=== PATIENT | female | born 1955 | race Caucasian/White ===

== ENCOUNTER 2019-01-21 10:17 | Day surgery (SDC) | payer BC ==
[~2019-01-21 10:17] MED LIST: Lactated Ringers 1,000 ML IV SCH; Lidocaine 1%/Sod Bicarbonate in NS 8.4% 1 ML Syringe IDERM PRN; Sodium Chloride 0.9% 10 ML Syringe FLUSH PRN
[2019-01-21] MEDS ORDERED: Rocuronium 50 MG/5 ML Vial ONE (10:31)
[2019-01-21] MEDS ORDERED: Lidocaine 1% 4 ML ONE (10:31)
[2019-01-21] MEDS ORDERED: Ondansetron 4 MG/2 ML SDV ONE (10:31)
[2019-01-21] MEDS ORDERED: Propofol 200 MG/20 ML SDV ONE (10:32)
[2019-01-21] MEDS ORDERED: Midazolam 1 MG/ML 2 ML SDV ONE (10:32)
[2019-01-21] MEDS ORDERED: Ketorolac 30 MG/ML SDV ONE (10:32)
[2019-01-21] MEDS ORDERED: fentaNYL 250 MCG/5 ML SDV ONE (10:32)
[2019-01-21] MEDS ORDERED: Dexamethasone 4 MG/ML SDV ONE (10:32)
[2019-01-21] MEDS ORDERED: ceFAZolin 1 GM Vial ONE (10:34)
--- NOTE | 2019-01-21 10:48 | PCM.PREANE ---
Preanesthetic Assessment - Procedure Proposed Procedure: A and P repair- sling and perineaplasty - Anesthesia/Transfusion/Family Hx Anesthesia History: Prior Anesthesia Without Reaction Family History of Anesthesia Reaction: No Transfusion History: No Prior Transfusion(s) - Review of Systems General: No Symptoms Pulmonary: No Symptoms Cardiovascular: No Symptoms Gastrointestinal: No Symptoms Neurological: No Symptoms Other: Reports: Sinus Problem (drainage- ) - Physical Assessment NPO Status Date: 01/20/19 NPO Status Time: 21:00 Pulse: 81 O2 Sat by Pulse Oximetry: 95 Respiratory Rate: 16 Blood Pressure: 131/73 Temperature: 98.1 F Height: 5 ft 3 in Weight: 69.853 kg ASA Class: 2 Mental Status: Alert & Oriented x3 Airway Class: Mallampati = 1 Dentition: Reports: Normal Dentition Thyro-Mental Finger Breadths: 3 Mouth Opening Finger Breadths: 3 ROM/Head Extension: Full Lungs: Clear to Auscultation, Normal Respiratory Effort Cardiovascular: Regular Rate, Regular Rhythm - Lab Values: Laboratory Last Values WBC 5.46 K/mm3 (3.98-10.04) 01/20/19 13:53 RBC 4.62 M/mm3 (3.98-5.22) 01/20/19 13:53 Hgb 13.5 gm/L (11.2-15.7) 01/20/19 13:53 Hct 41.5 % (34.1-44.9) 01/20/19 13:53 MCV 89.8 fl (79.4-94.8) 01/20/19 13:53 MCH 29.2 pg (25.6-32.2) 01/20/19 13:53 MCHC 32.5 g/dl (32.2-35.5) 01/20/19 13:53 RDW Std Deviation 42.1 fL (36.4-46.3) 01/20/19 13:53 Plt Count 271 K/mm3 (182-369) 01/20/19 13:53 MPV 8.8 fl (9.4-12.3) L 01/20/19 13:53 Neut % (Auto) 59.5 % (34.0-71.1) 01/20/19 13:53 Lymph % (Auto) 20.9 % (19.3-51.7) 01/20/19 13:53 [place] % (Auto) 13.9 % (4.7-12.5) H 01/20/19 13:53 Eos % (Auto) 4.0 (0.7-5.8) 01/20/19 13:53 Baso % (Auto) 1.5 % (0.1-1.2) H 01/20/19 13:53 Neut # (Auto) 3.25 K/mm3 (1.56-6.13) 01/20/19 13:53 Lymph # (Auto) 1.14 K/mm3 (1.18-3.74) L 01/20/19 13:53 [place] # (Auto) 0.76 K/mm3 (0.24-0.36) H 01/20/19 13:53 Eos # (Auto) 0.22 K/mm3 (0.04-0.36) 01/20/19 13:53 Baso # (Auto) 0.08 K/mm3 (0.01-0.08) 01/20/19 13:53 Sodium 140 mEq/L (136-145) 01/20/19 13:53 Potassium 3.7 mEq/L (3.5-5.1) 01/20/19 13:53 Chloride 105 mEq/L (98-107) 01/20/19 13:53 Carbon Dioxide 26 mEq/L (21-32) 01/20/19 13:53 Anion Gap 12.7 (5-15) 01/20/19 13:53 BUN 12 mg/dL (7-18) 01/20/19 13:53 Creatinine 0.9 mg/dL (0.55-1.02) 01/20/19 13:53 Est Cr Clr Drug Dosing TNP 01/20/19 13:53 Estimated GFR (MDRD) > 60 mL/min (>60) 01/20/19 13:53 BUN/Creatinine Ratio 13.3 (14-18) L 01/20/19 13:53 Glucose 99 mg/dL (80-115) 01/20/19 13:53 Calcium 9.2 mg/dL (8.5-10.1) 01/20/19 13:53 Total Bilirubin 0.4 mg/dL (0.2-1.0) 01/20/19 13:53 AST 26 U/L (15-37) 01/20/19 13:53 ALT 33 U/L (14-59) 01/20/19 13:53 Alkaline Phosphatase 76 U/L (46-116) 01/20/19 13:53 Total Protein 7.7 g/dl (6.4-8.2) 01/20/19 13:53 Albumin 4.0 g/dl (3.4-5.0) 01/20/19 13:53 Globulin 3.7 gm/dL 01/20/19 13:53 Albumin/Globulin Ratio 1.1 (1-2) 01/20/19 13:53 Urine Color Yellow (Yellow) 01/20/19 13:53 Urine Appearance Clear (Clear) 01/20/19 13:53 Urine pH 6.0 (5.0-8.0) 01/20/19 13:53 Ur Specific Dozier 1.025 (1.005-1.030) 01/20/19 13:53 Urine Protein Negative (Negative) 01/20/19 13:53 Urine Glucose (UA) Negative (Negative) 01/20/19 13:53 Urine Ketones Negative (Negative) 01/20/19 13:53 Urine Occult Blood Trace-intact (Negative) H 01/20/19 13:53 Urine Nitrite Negative (Negative) 01/20/19 13:53 Urine Bilirubin Negative (Negative) 01/20/19 13:53 Urine Urobilinogen 0.2 (0.2-1.0) 01/20/19 13:53 Ur Leukocyte Esterase Trace (Negative) H 01/20/19 13:53 - Allergies Allergies/Adverse Reactions: Allergies Allergy/AdvReac Type Severity Reaction Status Date / Time No Known Allergies Allergy Verified 01/20/19 15:17 - Blood Blood Available: No - Acknowledgements Anesthesia Type Planned: General Anesthesia Pt an Appropriate Candidate for the Planned Anesthesia: Yes Alternatives and Risks of Anesthesia Discussed w Pt/Guardian: Yes Pt/Guardian Understands and Agrees with Anesthesia Plan: Yes PreAnesthesia Questionnaire HEENT History: Reports: Impaired Vision Cardiovascular History: Reports: None Respiratory History: Reports: None Gastrointestinal History: Reports: None Genitourinary History: Reports: None 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: Reports: None Musculoskeletal History: Reports: None Neurological History: Reports: None Psychiatric History: Reports: None Endocrine/Metabolic History: Reports: None Hematologic History: Reports: None Immunologic History: Reports: None Oncologic (Cancer) History: Reports: None Dermatologic History: Reports: None - Past Surgical History Head Surgeries/Procedures: Reports: None HEENT Surgical History: Reports: Cataract Surgery, Oral Surgery Cardiovascular Surgical History: Reports: None Respiratory Surgical History: Reports: None GI Surgical History: Reports: None Female Surgical History: Reports: None, Hysterectomy Male Surgical History: Reports: None Endocrine Surgical History: Reports: None Neurological Surgical History: Reports: None Musculoskeletal Surgical History: Reports: None Oncologic Surgical History: Reports: None Dermatological Surgical History: Reports: None - SUBSTANCE USE Smoking Status *Q: Never Smoker Tobacco Use Within Last Twelve Months: No Second Hand Smoke Exposure: No Days Per Week of Alcohol Use: 1 (rare) Recreational Drug Use History: No - HOME MEDS Home Medications: Home Meds . [No Known Home Meds] 01/20/19 [History] - CURRENT (IN HOUSE) MEDS Current Meds: Current Medications Lactated Ringer's (Ringers, Lactated) 1,000 mls @ 125 mls/hr IV ASDIRECTED CHAUNCEY Stop: 01/21/19 23:00 Lidocaine/Sodium Bicarbonate (Buffered Lidocaine 1% In Ns 8.4%) 0.25 ml IDERM ONETIME PRN PRN Reason: Prior to IV Start Stop: 01/21/19 23:00 Sodium Chloride (Saline Flush) 10 ml FLUSH ASDIRECTED PRN PRN Reason: Keep Vein Open Stop: 01/21/19 23:00 Discontinued Medications Cefazolin Sodium (Ancef) Confirm Administered Dose 2 gm .ROUTE .STK-MED ONE Stop: 01/21/19 10:35 Dexamethasone (Dexamethasone) Confirm Administered Dose 8 mg .ROUTE .STK-MED ONE Stop: 01/21/19 10:33 Fentanyl (Sublimaze) Confirm Administered Dose 250 mcg .ROUTE .STK-MED ONE Stop: 01/21/19 10:33 Lidocaine HCl (Xylocaine-Mpf 1%) Confirm Administered Dose 4 mls @ as directed .ROUTE .STK-MED ONE Stop: 01/21/19 10:32 Ketorolac Tromethamine (Toradol) Confirm Administered Dose 30 mg .ROUTE .STK- MED ONE Stop: 01/21/19 10:33 Midazolam HCl (Versed 1 Mg/Ml) Confirm Administered Dose 2 mg .ROUTE .STK-MED ONE Stop: 01/21/19 10:33 Ondansetron HCl (Zofran) Confirm Administered Dose 4 mg .ROUTE .STK-MED ONE Stop: 01/21/19 10:32 Propofol (Diprivan 20 Ml) Confirm Administered Dose 200 mg .ROUTE .STK-MED ONE Stop: 01/21/19 10:33 Rocuronium [place] (Zemuron) Confirm Administered Dose 50 mg .ROUTE .STK-MED ONE Stop: 01/21/19 10:32
[2019-01-21] MEDS ORDERED: Lidocaine 1% with EPINEPHrine 1:100,000 20 ML MDV ONE (12:29)
[2019-01-21] MEDS ORDERED: Sodium Chloride 0.9% 50 ML SDV ONE (12:30)
[2019-01-21] MEDS ORDERED: HYDROmorphone 0.5 MG/0.5 ML Syringe IVPUSH PRN (13:16)
[2019-01-21] MEDS ORDERED: Ondansetron 4 MG/2 ML SDV IVPUSH PRN (13:16)
[2019-01-21] MEDS ORDERED: Lactated Ringers 1,000 ML ONE (13:21)
[2019-01-21] MEDS ORDERED: Neostigmine Methylsulfate 1 MG/ML 5 ML Syringe ONE (13:30)
[2019-01-21] MEDS ORDERED: ePHEDrine/Normal Saline 25 MG/5 ML Syringe ONE (13:37)
--- NOTE | 2019-01-21 14:18 | PCM.POSTAN ---
POST ANESTHESIA ASSESSMENT - MENTAL STATUS Mental Status: Alert, Oriented - VITAL SIGNS Pulse Rate: 101 SaO2: 96 Resp Rate: 15 Blood Pressure: 142/77 Temperature: 98.1 F - RESPIRATORY Respiratory Status: Respiratory Rate WNL, Airway Patent, O2 Saturation Stable, Supplemental Oxygen - CARDIOVASCULAR CV Status: Pulse Rate WNL, Blood Pressure Stable - GASTROINTESTINAL GI Status: No Symptoms - PAIN Pain Score: 0 - POST OP HYDRATION Hydration Status: Adequate & Stable
--- NOTE | 2019-01-21 14:23 | PCM48HPAN ---
Post Anesthesia Note - EVALUATION WITHIN 48HRS OF ANESTHETIC Vital Signs in Normal Range: Yes Patient Participated in Evaluation: Yes Respiratory Function Stable: Yes Airway Patent: Yes Cardiovascular Function Stable: Yes Hydration Status Stable: Yes Pain Control Satisfactory: Yes Nausea and Vomiting Control Satisfactory: Yes Mental Status Recovered: Yes (denies pain) Pulse Rate: 101 Resp Rate: 15 Temperature: 98.1 F Blood Pressure: 142/77
[2019-01-21] MEDS: fentaNYL 100 MCG/2 ML SDV IVPUSH PRN ×2 (14:25→14:44)
[2019-01-21] MEDS ORDERED: Ketorolac 30 MG/ML SDV IVPUSH SCH (14:30)
--- NOTE | 2019-01-21 14:31 | PCM.OPNOTE ---
- General Post-Op/Procedure Note Date of Surgery/Procedure: 01/21/19 Operative Procedure(s): 1. Anterior vaginal. 2. Subfascial mid-urethral sling. 3. Perineoplasty Findings: Grade 3 cystocele, grade 1 vaginal vault descensus, gaping introitus, status post hysterectomy with surgical absence of cervix and uterus. Pre Op Diagnosis: 1. Cystocele. 2. Stress urinary incontinence. 3. Increased urine residual Post-Op Diagnosis: Same Anesthesia Technique: General ET Tube Other Anesthesia Type: Lidocaine quarter percent with epinephrineapproximately 15 mL local Primary Surgeon: Eduardo Longo Secondary Surgeon: Donnell Torre Anesthesia Provider: John Jacome Reason Associate Professor Of Archaeology Was Necessary: Retraction, assistance, patient safety, quality of care Fluid Replacement, Intraop: 1,300 Output, Urine Amount: 150 EBL in mLs: 10 Drain/Tube Comments:: Red rubber catheter was used to drain the bladder prior to the procedure and to fill the bladder after the procedure. Complications: None Condition: Good Free Text/Narrative:: Surgery duration: 43 minutes Procedure: The patient is taken to the operating room and placed in a supine position on the operating table. She received 2 g of Ancef preoperatively for infection prophylaxis. She had sequential compression stockings in place for DVT prophylaxis. Patient was administered general endotracheal anesthesia. She was placed in a dorsal lithotomy position and prepped and draped in the usual fashion. Anterior vaginal repair was performed. Patient had emptied her bladder retention representative to the OR. Weighted speculum was placed in the vagina and the uppermost portion of the cystocele was identified. Two Allis clamps was placed at that uppermost point at a position approximately 1-1/2 cm lateral to the midline A second Allis clamp was placed approximately 2 cm from the urethral meatus. The areas and infiltrated with lidocaine quarter percent with epinephrine. Approximately 8 mL was used. The 2 lateral Allis clamps were retracted and an epithelial incision was made between the 2 clamps. A midline incision was then made with a Metzenbaum scissors. The overlying epithelium was then dissected off of the underlying vesicovaginal fascia. This all to lateral which when approximately midline was felt to be adequate to reduce the cystocele. When this was done approximately 4 trapezoidal shaped sutures of 0 Monocryl were then placed reapproximating the lateral supportive tissue midline and reducing the rectocele. At this point the excess epithelium bilaterally was removed and the epithelium was closed in a running fashion with 2 short segments to decrease likelihood of shortening of the vagina. The subfascial mid-urethral sling was then placed. The patient's bladder was drained with a red rubber catheter. A normal appearing urine proximated 150 mL was removed. The epithelium overlying the urethra was grasped approximately 1 cm from the urethral meatus and approximately 2 cm cephalad from there with Allis clamps. The area of the skin overlying the medial aspect of the obturator foramen on each side just posterior to the origin the abductor longus musclewas marked with a marking pen. These 2 areas and the sub-fascial layer of the vaginal were then infiltrated with lidocaine quarter percent with epinephrinetotal of approximately 10 mL was used. incisions made in the epithelium overlying the urethra and 2 small stab wounds 3 mm in length were made in the 2 areas of the panty line of the patient. The subfascial planes and adequately dissected bilaterally to allow placement of the mesh. The helical adapter was then placed through the obturator on patient's left side brought out through the vaginal subfascial plane. Mesh was attached to it and then was pulled back through the obturator foramen. Same was done on the right side. Mesh was then snugged up to the urethra. Dilator 15 mm in diameter was used as a spacer to place the mesh in a tension-free position. At this point the mesh was cut off at the skin surface and the dilator was removed. The midline epithelium was closed with a short running suture of 3-0 Monocryl. Skin incisions were closed with Dermabond skin glue. These bladder was filled with approximately 240 cc of normal saline to facilitate voiding and therefore discharge home. Perineoplasty was then performed. Posterior introital area was visualized. Upper lateral portion of the perineal body was grasped with a and Jami midline. A naya-shaped piece vaginal epithelium was removed after infiltration with lidocaine quarter percent with epinephrine. The vaginal epithelium was dissected in a bilateral fashion minimally on both sides. The perineoplasty was then performed with approximately 4 V-shaped stitches of 0 Monocryl in placed to reapproximate the lateral tissue midline, rebuild the perineum about 1 cm and the vagina length approximately 1 cm. The epithelium of the introitus and perineal body was then reapproximated using 3-0 Monocryl in an episiotomy repair fashion. At this time sponge, instrument and needle counts were correct. The patient was returned to supine position and was discharged from the operating room in good The patient was returned to supine position, awakened from general endotracheal anesthesia and was discharged from operating room in good condition.
[2019-01-21] MEDS: Acetaminophen/oxyCODONE 325-5 MG Tab PO PRN ×2 (15:23→17:31)
== END 2019-01-21 18:10 | disposition home or self-care (01) ==
LOC: JD.SDS 10:17
PROVIDERS: ATTEND Obstetrics & Gynecology
DX: N81.10 Cystocele, unspecified (principal); N39.3 Stress incontinence (female) (male); N81.6 Rectocele; R39.198 Other difficulties with micturition; Z90.710 Acquired absence of both cervix and uterus
CPT/HCPCS: 36415; 51701; 80053; 81003; 85025; A9270-GY; C1771; J0690; J1100; J1885; J2001; J2250; J2405; J2704; J2710; J3010; J7050; J7120